=== PATIENT | male | born 1985 | race Asian ===

== ENCOUNTER → 2024-03-19 | Outpatient (CLI) | payer OTHER ==
[~2024-03-19] MED LIST: MethylPREDNISolone SOD SUCC 125 MG/2 ML VIAL ONE
== END | disposition home or self-care (01) ==
LOC: RADPV 09:34
PROVIDERS: ATTEND Chiropractor
DX: I08.8 Other rheumatic multiple valve diseases (principal)
CPT/HCPCS: 93306; J2919